=== PATIENT | female | born 1950 | race Caucasian/White ===

== ENCOUNTER 2016-10-25 18:17 | Emergency (ER) | payer BC ==
[2016-10-25 21:34] VITALS: BP 145/50
--- NOTE | 2016-10-25 22:08 | EDM.PDOC ---
ED HPI GENERAL MEDICAL PROBLEM - General Chief Complaint: Neurological Problem Stated Complaint: DIZZY Time Seen by Provider: 10/25/16 18:39 Source of Information: Reports: Patient History Limitations: Reports: No Limitations - History of Present Illness INITIAL COMMENTS - FREE TEXT/NARRATIVE: History of present illness: [65-year-old female presenting with intermittent vertigo for the last week. It comes on spontaneously and last for hours and then goes away. It is not associated with any nausea or vomiting. She's also noted a dull headache over the last week and has been taking Advil for that. She also recently had some discomfort involving her right ear and had several days where she heard a whooshing sound in her ear that has now resolved. She's had no fevers or chills cough cold symptoms no chest pain or shortness breath said no lightheadedness or dizziness and otherwise feels well] Review of systems: As per history of present illness and below otherwise all systems reviewed and negative. Past medical history: As per history of present illness and as reviewed below otherwise noncontributory. Surgical history: As per history of present illness and as reviewed below otherwise noncontributory. Social history: No reported history of drug or alcohol abuse. Family history: As per history of present illness and as reviewed below otherwise noncontributory. Physical exam: HEENT: Atraumatic, normocephalic, pupils reactive, negative for conjunctival pallor or scleral icterus, mucous membranes moist, throat clear, neck supple, nontender, trachea midline. No carotid bruits Lungs: Clear to auscultation, breath sounds equal bilaterally, chest nontender. Heart: S1S2, regular, negative for clicks, rubs, or JVD. Abdomen: Soft, nondistended, nontender. Negative for masses or hepatosplenomegaly. Negative for costovertebral tenderness. Pelvis: Stable nontender. Genitourinary: Deferred. Rectal: Deferred. Extremities: Atraumatic, negative for cords or calf pain. Neurovascular unremarkable. Neuro: Awake, alert, oriented. Cranial nerves II through XII unremarkable. Cerebellum unremarkable. Motor and sensory unremarkable throughout. Exam nonfocal. Diagnostics: [Head CT is negative CBC and complete metabolic panel are unremarkable] Therapeutics: [] Impression: [Vertigo] Plan: [Given that this is a subtle vertigo that seems to come and go spontaneously and not associated with head movement I am more concerned about a central cause and therefore ordered an MRI with and without contrast to be done tomorrow. The results will be sent to Felisa Young NP her primary.] Definitive disposition and diagnosis as appropriate pending reevaluation and review of above. - Related Data Allergies Allergy/AdvReac Type Severity Reaction Status Date / Time triamterene [Triamterene] Allergy Itching Verified 10/25/16 19:08 Home Meds: Home Meds Aspirin [Adult Low Dose Aspirin EC] 81 mg PO DAILY 05/06/14 [History] Calcium Carbonate/Vitamin D2 [Calcium with Vit D] 1 cap PO DAILY 05/06/14 [ History] Lisinopril [Zestril] 5 mg PO DAILY 05/06/14 [History] Metoprolol Tartrate [Lopressor] 50 mg PO BID 05/06/14 [History] Multivitamin [One Daily] 1 tab PO DAILY 05/06/14 [History] Simvastatin [Zocor] 60 mg PO DAILY 05/06/14 [History] Cholecalciferol (Vitamin D3) [Vitamin D3] 1,200 unit PO DAILY 10/25/16 [History] Past Medical History Cardiovascular History: Reports: High Cholesterol, Hypertension Respiratory History: Reports: None Gastrointestinal History: Reports: Cholelithiasis Genitourinary History: Reports: UTI, 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: Musculoskeletal History: Reports: None Neurological History: Reports: None Psychiatric History: Reports: None Endocrine/Metabolic History: Reports: Vitamin D Deficiency Hematologic History: Reports: None Dermatologic History: Reports: None - Infectious Disease History Infectious Disease History: Reports: Chicken Pox, Measles - Past Surgical History Cardiovascular Surgical History: Reports: None GI Surgical History: Reports: Cholecystectomy, Colonoscopy Female Surgical History: Reports: None Neurological Surgical History: Reports: None Musculoskeletal Surgical History: Reports: Other (See Below) Other Musculoskeletal Surgeries/Procedures:: right foot bunion removed Dermatological Surgical History: Reports: None Social & Family History - Tobacco Use Smoking Status *Q: Never Smoker Second Hand Smoke Exposure: No - Caffeine Use Caffeine Use: Reports: None - Alcohol Use Days Per Week of Alcohol Use: 0 - Recreational Drug Use Recreational Drug Use: No ED ROS GENERAL - Review of Systems Review Of Systems: ROS reveals no pertinent complaints other than HPI. ED EXAM, NEURO - Physical Exam Exam: See Below Course - Vital Signs Last Recorded V/S: Last Vital Signs Temp 36.2 C 10/25/16 21:33 Pulse 71 10/25/16 21:33 Resp 16 10/25/16 21:33 BP 145/50 H 10/25/16 21:33 Pulse Ox 99 10/25/16 21:33 - Orders/Labs/Meds Orders: Active Orders 24 hr Category Date Time Status EKG Documentation Completion [RC] ASDIRECTED Care 10/25/16 18:40 Active Head wo Cont [CT] Stat Exams 10/25/16 20:25 Taken EKG 12 Lead [EK] Stat Ther 10/25/16 18:40 Ordered Labs: Laboratory Tests 10/25/16 10/25/16 Range/Units 20:25 20:25 WBC 7.6 (4.5-11.0) K/uL RBC 4.39 (3.30-5.50) M/uL Hgb 13.5 (12.0-15.0) g/dL Hct 39.6 (36.0-48.0) % MCV 90 (80-98) fL MCH 31 (27-31) pg MCHC 34 (32-36) % Plt Count 214 (150-400) K/uL Neut % (Auto) 64 (36-66) % Lymph % (Auto) 24 (24-44) % [place] % (Auto) 10 H (2-6) % Eos % (Auto) 1 L (2-4) % Baso % (Auto) 1 (0-1) % Sodium 140 (140-148) mmol/L Potassium 4.0 (3.6-5.2) mmol/L Chloride 104 (100-108) mmol/L Carbon Dioxide 29 (21-32) mmol/L Anion Gap 7.4 (5.0-14.0) mmol/L BUN 20 H (7-18) mg/dL Creatinine 1.0 (0.6-1.0) mg/dL Est Cr Clr Drug Dosing 58.36 mL/min Estimated GFR (MDRD) 56 L (>60) Glucose 112 H (74-106) mg/dL Calcium 8.9 (8.5-10.1) mg/dL Total Bilirubin 0.3 (0.2-1.0) mg/dL AST 21 (15-37) U/L ALT 29 (12-78) U/L Alkaline Phosphatase 98 (46-116) U/L Total Protein 7.7 (6.4-8.2) g/dL Albumin 3.6 (3.4-5.0) g/dL Globulin 4.1 H (2.3-3.5) g/dL Albumin/Globulin Ratio 0.9 L (1.2-2.2) Departure - Departure Time of Disposition: 22:06 Disposition: Home, Self-Care 01 Condition: Good Clinical Impression: Vertigo - Discharge Information Forms: ED Department Discharge Additional Instructions: As we discussed he'll be having an MRI tomorrow and results will be sent to Felisa Young. I would recommend you call the clinic and speak with Felisa Young's nurse just so that they can be aware of the fact that this is being done and why... - My Orders Last 24 Hours: My Active Orders 10/25/16 18:40 EKG Documentation Completion [RC] ASDIRECTED EKG 12 Lead [EK] Stat 10/25/16 20:25 Head wo Cont [CT] Stat - Assessment/Plan Last 24 Hours: My Active Orders 10/25/16 18:40 EKG Documentation Completion [RC] ASDIRECTED EKG 12 Lead [EK] Stat 10/25/16 20:25 Head wo Cont [CT] Stat
== END 2016-10-25 22:20 | disposition home or self-care (01) ==
LOC: JP.ED 18:17
DX: R42 Dizziness and giddiness (principal); E78.00 Pure hypercholesterolemia, unspecified; I10 Essential (primary) hypertension; Z87.440 Personal history of urinary (tract) infections; Z90.49 Acquired absence of other specified parts of digestive tract; Z98.890 Other specified postprocedural states; Z88.8 Allergy status to other drugs, medicaments and biological substances; Z79.82 Long term (current) use of aspirin; Z79.899 Other long term (current) drug therapy
CPT/HCPCS: 36415; 70450; 80053; 85025; 93005; 99285-25

== ENCOUNTER 2017-07-03 05:58 | Emergency (ER) | payer MEDICARE, BC ==
[2017-07-03 06:43] VITALS: BP 137/67
--- NOTE | 2017-07-03 07:11 | EDM.PDOC ---
ED HPI GENERAL MEDICAL PROBLEM - General Chief Complaint: Diabetic Complaint Stated Complaint: WANTS A BLOOD DRAW Time Seen by Provider: 07/03/17 07:07 Source of Information: Reports: Patient History Limitations: Reports: No Limitations - History of Present Illness INITIAL COMMENTS - FREE TEXT/NARRATIVE: pt is very concerned about her hga1c rising. She has also noted some weakness in her legs when she first gets up in the am. She sometimes feels like her legs are not going to hold her up, Onset: Gradual, Other ( started June 14. ) Duration: Day(s): Location: Reports: Lower Extremity, Left, Lower Extremity, Right, Other (pt has not had any chest pain. ) Associated Symptoms: Reports: Malaise, Weakness, Other (pt notes weakness in both legs. ) - Related Data Allergies Allergy/AdvReac Type Severity Reaction Status Date / Time triamterene [Triamterene] Allergy Itching Verified 07/03/17 06:43 Home Meds: Home Meds Aspirin [Adult Low Dose Aspirin EC] 81 mg PO DAILY 05/06/14 [History] Calcium Carbonate/Vitamin D2 [Calcium with Vit D] 1 cap PO DAILY 05/06/14 [ History] Lisinopril [Zestril] 5 mg PO DAILY 05/06/14 [History] Metoprolol Tartrate [Lopressor] 50 mg PO BID 05/06/14 [History] Multivitamin [One Daily] 1 tab PO DAILY 05/06/14 [History] Simvastatin [Zocor] 60 mg PO DAILY 05/06/14 [History] Cholecalciferol (Vitamin D3) [Vitamin D3] 1,200 unit PO DAILY 10/25/16 [History] Past Medical History Cardiovascular History: Reports: High Cholesterol, Hypertension Respiratory History: Reports: None Gastrointestinal History: Reports: Cholelithiasis Genitourinary History: Reports: UTI, 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: Musculoskeletal History: Reports: None Neurological History: Reports: None Psychiatric History: Reports: None Endocrine/Metabolic History: Reports: Vitamin D Deficiency, Other (See Below) Other Endocrine/Metabolic History: hyperglycemia Hematologic History: Reports: None Dermatologic History: Reports: None - Infectious Disease History Infectious Disease History: Reports: Chicken Pox, Measles - Past Surgical History Cardiovascular Surgical History: Reports: None GI Surgical History: Reports: Cholecystectomy, Colonoscopy Female Surgical History: Reports: None Neurological Surgical History: Reports: None Musculoskeletal Surgical History: Reports: Other (See Below) Other Musculoskeletal Surgeries/Procedures:: right foot bunion removed Dermatological Surgical History: Reports: None Social & Family History - Tobacco Use Smoking Status *Q: Never Smoker Second Hand Smoke Exposure: No - Caffeine Use Caffeine Use: Reports: Tea Other Caffeine Use: rare and green tea - Alcohol Use Days Per Week of Alcohol Use: 0 - Recreational Drug Use Recreational Drug Use: No ED ROS GENERAL - Review of Systems Review Of Systems: See Below Constitutional: Reports: Malaise HEENT: Reports: No Symptoms Respiratory: Reports: No Symptoms Cardiovascular: Reports: No Symptoms Endocrine: Reports: No Symptoms GI/Abdominal: Reports: Other (wt is up in gneral. ) : Reports: No Symptoms Musculoskeletal: Reports: No Symptoms Skin: Reports: No Symptoms ED EXAM GENERAL NO PERIP PULSE - Physical Exam Exam: See Below Text/Narrative:: pt arrived with a history of being more fatiqued. She had a recent flare of her vertigo which is better at this time. Exam Limited By: No Limitations General Appearance: Alert, No Apparent Distress, Other (pt is concerned about how she is feeling in general. ) Ears: Normal TMs Nose: Normal Inspection Throat/Mouth: Normal Inspection Head: Atraumatic Neck: Normal Inspection Respiratory/Chest: No Respiratory Distress Cardiovascular: Regular Rate, Rhythm GI/Abdominal: Soft, Non-Tender (Female) Exam: Deferred Rectal (Female) Exam: Deferred, Other (pt has had looser stools. ) Back Exam: Normal Inspection Extremities: Normal Inspection Neurological: Alert, Oriented, Normal Cognition Psychiatric: Normal Affect Course - Vital Signs Last Recorded V/S: Last Vital Signs Temp 35.6 C 07/03/17 06:39 Pulse 63 07/03/17 06:39 Resp 14 07/03/17 06:39 BP 137/67 07/03/17 06:39 Pulse Ox 98 07/03/17 06:39 - Orders/Labs/Meds Orders: Active Orders 24 hr Category Date Time Status CULTURE URINE [RM] Stat Lab 07/03/17 07:58 Received UA W/MICROSCOPIC [URIN] Urgent Lab 07/03/17 07:33 Ordered Labs: Laboratory Tests 07/03/17 07/03/17 07/03/17 Range/Units 07:20 07:20 07:29 WBC 5.9 (4.5-11.0) K/uL RBC 4.55 (3.30-5.50) M/uL Hgb 14.2 (12.0-15.0) g/dL Hct 41.6 (36.0-48.0) % MCV 91 (80-98) fL MCH 31 (27-31) pg MCHC 34 (32-36) % Plt Count 236 (150-400) K/uL Neut % (Auto) 66 (36-66) % Lymph % (Auto) 22 L (24-44) % [place] % (Auto) 11 H (2-6) % Eos % (Auto) 1 L (2-4) % Baso % (Auto) 0 (0-1) % Sodium 144 (140-148) mmol/L Potassium 4.0 (3.6-5.2) mmol/L Chloride 105 (100-108) mmol/L Carbon Dioxide 29 (21-32) mmol/L Anion Gap 10.0 (5.0-14.0) mmol/L BUN 14 (7-18) mg/dL Creatinine 1.0 (0.6-1.0) mg/dL Est Cr Clr Drug Dosing 56.32 mL/min Estimated GFR (MDRD) 56 L (>60) Glucose 145 H (74-106) mg/dL Hemoglobin A1c 6.6 H (4.5-6.2) % Calcium 9.2 (8.5-10.1) mg/dL Total Bilirubin 0.4 (0.2-1.0) mg/dL AST 16 (15-37) U/L ALT 23 (12-78) U/L Alkaline Phosphatase 90 (46-116) U/L C-Reactive Protein (0.0-0.3) mg/dL Total Protein 7.6 (6.4-8.2) g/dL Albumin 3.9 (3.4-5.0) g/dL Globulin 3.7 H (2.3-3.5) g/dL Albumin/Globulin Ratio 1.1 L (1.2-2.2) Urine Color Urine Appearance Urine pH (4.5-8.0) Ur Specific [place] (1.008-1.030) Urine Protein (NEGATIVE) mg/dL Urine Glucose (UA) (NEGATIVE) mg/dL Urine Ketones (NEGATIVE) mg/dL Urine Occult Blood (NEGATIVE) Urine Nitrite (NEGATIVE) Urine Bilirubin (NEGATIVE) Urine Urobilinogen (NORMAL) mg/dL Ur Leukocyte Esterase (NEGATIVE) Urine RBC (0-5) Urine WBC (0-5) Ur Epithelial Cells Amorphous Sediment Urine Bacteria Urine Mucus 07/03/17 07/03/17 Range/Units 07:29 07:33 WBC (4.5-11.0) K/uL RBC (3.30-5.50) M/uL Hgb (12.0-15.0) g/dL Hct (36.0-48.0) % MCV (80-98) fL MCH (27-31) pg MCHC (32-36) % Plt Count (150-400) K/uL Neut % (Auto) (36-66) % Lymph % (Auto) (24-44) % [place] % (Auto) (2-6) % Eos % (Auto) (2-4) % Baso % (Auto) (0-1) % Sodium (140-148) mmol/L Potassium (3.6-5.2) mmol/L Chloride (100-108) mmol/L Carbon Dioxide (21-32) mmol/L Anion Gap (5.0-14.0) mmol/L BUN (7-18) mg/dL Creatinine (0.6-1.0) mg/dL Est Cr Clr Drug Dosing mL/min Estimated GFR (MDRD) (>60) Glucose (74-106) mg/dL Hemoglobin A1c (4.5-6.2) % Calcium (8.5-10.1) mg/dL Total Bilirubin (0.2-1.0) mg/dL AST (15-37) U/L ALT (12-78) U/L Alkaline Phosphatase (46-116) U/L C-Reactive Protein 0.07 (0.0-0.3) mg/dL Total Protein (6.4-8.2) g/dL Albumin (3.4-5.0) g/dL Globulin (2.3-3.5) g/dL Albumin/Globulin Ratio (1.2-2.2) Urine Color Yellow Urine Appearance Cloudy Urine pH 5.0 (4.5-8.0) Ur Specific [place] 1.020 (1.008-1.030) Urine Protein Negative (NEGATIVE) mg/dL Urine Glucose (UA) Normal (NEGATIVE) mg/dL Urine Ketones Negative (NEGATIVE) mg/dL Urine Occult Blood Negative (NEGATIVE) Urine Nitrite Negative (NEGATIVE) Urine Bilirubin Negative (NEGATIVE) Urine Urobilinogen Normal (NORMAL) mg/dL Ur Leukocyte Esterase Large (NEGATIVE) Urine RBC Not seen (0-5) Urine WBC 10-20 H (0-5) Ur Epithelial Cells Moderate Amorphous Sediment Moderate Urine Bacteria Moderate Urine Mucus Not seen - Re-Assessments/Exams Free Text/Narrative Re-Assessment/Exam: 07/03/17 08:19 pt has a hga1c of 6.6. This is down slightly. Her bs is 145. She is on no meds at this time for diabetis. Her urine does look lie it could be infected. A culture was obtained. Departure - Departure Time of Disposition: 08:20 Disposition: Home, Self-Care 01 Condition: Fair Clinical Impression: Elevated hemoglobin A1c, UTI (urinary tract infection) - Discharge Information Referrals: Olimpia Way MD [Primary Care Provider] - Forms: ED Department Discharge Care Plan Goals: cipro 500mg bid for 7 days. She will be notified of the urine culture results. appt Saturday at clinic take lab work to this visit. Encourage a good exercise program both for her legs and her bs. send a copy of her labs from today with her.Pt needs diet instruction to help her with her bs control. - My Orders Last 24 Hours: My Active Orders 07/03/17 07:33 UA W/MICROSCOPIC [URIN] Urgent 07/03/17 07:58 CULTURE URINE [RM] Stat - Assessment/Plan Last 24 Hours: My Active Orders 07/03/17 07:33 UA W/MICROSCOPIC [URIN] Urgent 07/03/17 07:58 CULTURE URINE [RM] Stat
== END 2017-07-03 09:11 | disposition home or self-care (01) ==
LOC: JP.ED 05:58
DX: N39.0 Urinary tract infection, site not specified (principal); R73.09 Other abnormal glucose; I10 Essential (primary) hypertension; E78.00 Pure hypercholesterolemia, unspecified; Z88.8 Allergy status to other drugs, medicaments and biological substances; Z79.82 Long term (current) use of aspirin; Z79.899 Other long term (current) drug therapy
CPT/HCPCS: 36415; 80053; 81001; 83036; 84443; 85025; 86140; 87086; 99284

== ENCOUNTER 2024-12-23 09:06 | Day surgery (SDC) | payer MEDICARE, BC ==
[2024-12-23] MEDS: Lactated Ringers 1,000 ML IV SCH (09:52)
[2024-12-23] MEDS ORDERED: Propofol 200 MG/20 ML SDV ONE ×2 (10:17→12:02)
[2024-12-23] MEDS ORDERED: fentaNYL 50 MCG/ML SDV ONE (10:17)
[2024-12-23 13:18] VITALS: BP 130/54; PULSE 50
== END 2024-12-23 13:15 | disposition home or self-care (01) ==
LOC: JP.SDS 09:06
PROVIDERS: ATTEND Surgery
DX: Z12.11 Encounter for screening for malignant neoplasm of colon (principal); K63.5 Polyp of colon; I10 Essential (primary) hypertension; E78.00 Pure hypercholesterolemia, unspecified; Z88.8 Allergy status to other drugs, medicaments and biological substances; Z79.899 Other long term (current) drug therapy
CPT/HCPCS: 00811-QZ; 88305; J2704; J3010; J7120